=== PATIENT | female | born 1995 | race Caucasian/White ===

== ENCOUNTER 2019-02-13 09:51 | Emergency (ER) | payer BC ==
--- NOTE | 2019-02-13 11:23 | ERPHSYRPT ---
- History of Present Illness Time Seen by Provider: 02/13/19 11:17 Source: patient Exam Limitations: no limitations Patient Subjective Stated Complaint: Had first migraine ever on December 12, 2018 and has now had a total of 6. Went to md and was prescribed Imitrex tablets and isn't getting much relief, her left side of her neck is now swollen, "feels likd a sac of fluid or something and is sore to touch", can not move her neck from side to side, began going to a chiropractor for low back pain in November and her neck is popped weekly by the chiropractor Triage Nursing Assessment: Pt walked into the ER with a stable gait, A&O x3, PERRL, no difficulties with strength, vitals wnl, unable to feel the swelling in the neck that is stated by the patient, pulses normal, rates pain in neck as a 4/10, had migraine last night and today her right eye feels strained and blurry Physician History: Ms narvaez is 23 years old female Had first migraine ever on December 12, 2018 and has now had a total of 6. Went to md and was prescribed Imitrex tablets and isn' t getting much relief, her left side of her neck is now swollen, "feels likd a sac of fluid or something and is sore to touch", can not move her neck from side to side, began going to a chiropractor for low back pain in November and her neck is popped weekly by the chiropractor Timing/Duration: week(s) Quality: aching Head Pain Location: frontal, temporal Severity of Pain-Max: moderate Severity of Pain-Current: moderate Recent Head Trauma: no recent headache/trauma Modifying Factors: Improves With: medication Associated Symptoms: sensitive to light, visual disturbance Previous symptoms: no prior history Allergies/Adverse Reactions: No Known Drug Allergies Allergy (Verified 02/13/19 10:46) Home Medications: Escitalopram Oxalate 10 mg PO DAILY 02/13/19 [History] SUMAtriptan succinate [Imitrex 50 mg] 50 mg PO UD PRN 02/13/19 [History] - Review of Systems Constitutional: No Fever, No Chills Eyes: No Symptoms Ears, Nose, & Throat: No Symptoms Respiratory: No Cough, No Dyspnea Cardiac: No Chest Pain, No Edema, No Syncope Abdominal/Gastrointestinal: No Abdominal Pain, No Nausea, No Vomiting, No Diarrhea Genitourinary Symptoms: No Dysuria Musculoskeletal: No Back Pain, No Neck Pain Skin: No Rash Neurological: Headache, No Dizziness, No Focal Weakness, No Sensory Changes Psychological: No Symptoms Endocrine: No Symptoms All Other Systems: Reviewed and Negative - Past Medical History Pertinent Past Medical History: No Neurological History: Migraines Endocrine Medical History: Hypothyroidism - Past Surgical History Past Surgical History: No - Social History Smoking Status: Former smoker Exposure to second hand smoke: No Drug Use: none Patient Lives Alone: No (son) - Female History Hx Last Menstrual Period: 01/30/2019 Hx Now: No (IUD) - Nursing Vital Signs Nursing Vital Signs: Initial Vital Signs Temperature 98.5 F 02/13/19 10:30 Pulse Rate 76 02/13/19 10:30 Blood Pressure 132/74 02/13/19 10:30 O2 Sat by Pulse Oximetry 95 02/13/19 10:30 Pain Scale Pain Intensity 4 - Physical Exam General Appearance: no apparent distress Eye Exam: PERRL/EOMI Ears, Nose, Throat Exam: normal ENT inspection, moist mucous membranes Neck Exam: normal inspection, supple, full range of motion, No meningismus Respiratory Exam: normal breath sounds, lungs clear Cardiovascular Exam: regular rate/rhythm, normal heart sounds Gastrointestinal/Abdominal Exam: soft, No tenderness, No distention Back Exam: normal inspection, normal range of motion Mental Status Exam: alert, 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 Those labs reviewed. TSH 10.74. Patient is taking 25 mcg of synthroid. will adjust dose to 50 mcg . we will also add inderal 30 mg at HS for her headache relief. Blood Culture(s) Obtained: No Antibiotics given: No Counseled pt/family regarding: diagnosis, need for follow-up - Departure Departure Disposition: Home Clinical Impression: Tension headache Hypothyroidism Qualifiers: Hypothyroidism type: acquired Qualified Code(s): E03.9 - Hypothyroidism, unspecified Migraine Qualifiers: Migraine type: unspecified Intractability: not intractable Condition: Stable Critical Care Time: No Referrals: MAC ARMSTRONG P[facility]HANGER AND PAINTER [Primary Care Provider] - Instructions: Hypothyroidism (Underactive Thyroid), Hypothyroidism ( Underactive Thyroid) (DC), Tension Headache (DC), Migraine Headache (DC) Additional Instructions: Discharge/Care Plan YUNIOR FLORES was seen on 02/13/19 in the Emergency Room. The patient was counseled regarding Diagnosis,Lab results, Imaging studies, need for follow up and when to return to the Emergency Room. Prescriptions given: Discharge Note I have spoken with the patient and/or caregivers. I have explained the patient' s condition, diagnosis and treatment plan based on the information available to me at this time. I have answered the patient's and/or caregiver's questions and addressed any concerns. The patient and/or caregivers have as good understanding of the patient's diagnosis, condition and treatment plan as can be expected at this point. The vital signs have been stable. The patient's condition is stable and appropriate for discharge from the emergency department. The patient will pursue further outpatient evaluation with the primary care physician or other designated or consulting physician as outlined in the discharge instructions. The patient and/or caregivers are agreeable to this plan of care and follow-up instructions have been explained in detail. The patient and/or caregivers have received these instruction. The patient/and or caregivers are aware that any significant change in condition or worsening of symptoms should prompt an immediate return to this or the closest emergency department or call 911. Prescriptions: Propranolol HCl [Inderal LA] 60 mg PO QHS #30 cap.sa.24h Levothyroxine Sodium 50 Mcg [Synthroid 50 Mcg] 50 mcg PO DAILY #30 tablet
[2019-02-13 11:29] VITALS: BP 116/91; PULSE 79; O2SAT 98
== END 2019-02-13 11:31 | disposition home or self-care (01) ==
LOC: ED 09:51
DX: G44.209 Tension-type headache, unspecified, not intractable (principal); E03.9 Hypothyroidism, unspecified; G43.909 Migraine, unspecified, not intractable, without status migrainosus
CPT/HCPCS: 99283

== ENCOUNTER 2019-07-15 19:31 | Emergency (ER) | payer BC ==
[2019-07-15] MEDS ORDERED: Reglan 10 MG/2 ML IV ONE (19:59)
[2019-07-15] MEDS ORDERED: SUBLIMAZE 100 MCG/2 ML IV ONE (19:59)
[2019-07-15] MEDS ORDERED: Sodium Chloride 0.9% 1000 ML 1,000 ML IV STA (19:59)
--- NOTE | 2019-07-15 20:13 | ERPHSYRPT ---
- History of Present Illness Time Seen by Provider: 07/15/19 20:11 Source: patient Exam Limitations: no limitations Patient Subjective Stated Complaint: patient presented to ER with migraines has already been to [facility] today and they gave her medicine through iv but it did not work and shes still feeling terrible . states she can feel heart beat in her temples Triage Nursing Assessment: pt alert and orietnedx3, able to ambulate by self, gait is steady, pupils perrla2, handgrips wequal bilateral, pulses equal bialteral radius, lung soudns clear, skin warm dry and itnact. Physician History: patient presented to ER with migraines has already been to [facility] today and they gave her medicine through iv but it did not work and shes still feeling terrible . states she can feel heart beat in her temples Timing/Duration: yesterday Quality: aching, throbbing Head Pain Location: frontal, temporal Severity of Pain-Max: severe Severity of Pain-Current: severe Recent Head Trauma: no recent headache/trauma Modifying Factors: Improves With: exposure to light Associated Symptoms: facial pain, sensitive to light, stiff neck Previous symptoms: same symptoms as today Allergies/Adverse Reactions: No Known Drug Allergies Allergy (Verified 02/13/19 10:46) Home Medications: Escitalopram Oxalate 10 mg PO DAILY 02/13/19 [History] SUMAtriptan succinate [Imitrex 50 mg] 50 mg PO UD PRN 02/13/19 [History] Hx Tetanus, Diphtheria Vaccination/Date Given: Yes Hx Influenza Vaccination/Date Given: No Hx Pneumococcal Vaccination/Date Given: Yes Immunizations Up to Date: Yes - Review of Systems Constitutional: No Fever, No Chills Eyes: No Symptoms Ears, Nose, & Throat: No Symptoms Respiratory: No Cough, No Dyspnea Cardiac: No Chest Pain, No Edema, No Syncope Abdominal/Gastrointestinal: No Abdominal Pain, No Nausea, No Vomiting, No Diarrhea Genitourinary Symptoms: No Dysuria Musculoskeletal: No Back Pain, No Neck Pain Skin: No Rash Neurological: Headache, No Dizziness, No Focal Weakness, No Sensory Changes Psychological: No Symptoms Endocrine: No Symptoms All Other Systems: Reviewed and Negative - Past Medical History Pertinent Past Medical History: Yes Neurological History: Migraines Endocrine Medical History: Hypothyroidism - Past Surgical History Past Surgical History: Yes - Social History Smoking Status: Former smoker Exposure to second hand smoke: No Drug Use: none Patient Lives Alone: No (son) - Female History Hx Now: No (IUD) - Nursing Vital Signs Nursing Vital Signs: Initial Vital Signs Temperature 98.7 F 07/15/19 19:32 Pulse Rate 64 07/15/19 19:32 Respiratory Rate 18 07/15/19 19:32 Blood Pressure 124/88 07/15/19 19:32 O2 Sat by Pulse Oximetry 98 07/15/19 19:32 Pain Scale Pain Intensity 4 - Physical Exam General Appearance: no apparent distress Eye Exam: PERRL/EOMI Ears, Nose, Throat Exam: normal ENT inspection, moist mucous membranes Neck Exam: normal inspection, supple, full range of motion, No meningismus Respiratory Exam: normal breath sounds, lungs clear Cardiovascular Exam: regular rate/rhythm, normal heart sounds Gastrointestinal/Abdominal Exam: soft, No tenderness, No distention Back Exam: normal inspection, normal range of motion Mental 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, 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, 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: normal speech, PERRL, No facial droop Coordination/Gait Exam: normal cerebellar function Motor/Sensory Exam: no motor deficit, no sensory deficit Skin Exam: normal color, warm, dry, No rash SpO2: 98 - Course Nursing assessment & vital signs reviewed: Yes Ordered Tests: Active Orders 24 hr Category Date Time Status CERVICAL SPINE WO CONTRAST [CT] Stat Exams 07/15/19 22:08 Taken HEAD WITHOUT CONTRAST [CT] Stat Exams 07/15/19 19:59 Taken BMP Stat Lab 07/15/19 21:10 Completed CBC W DIFF Stat Lab 07/15/19 21:10 Completed Erythrocyte Sedimentation Rate Stat Lab 07/15/19 21:10 Completed Medication Summary Discontinued Medications Generic Name Dose Route Start Last Admin Trade Name Iona PRN Reason Stop Dose Admin Fentanyl Citrate 50 mcg 07/15/19 19:59 07/15/19 21:13 Sublimaze 100 Mcg/2 Ml IV 07/15/19 20:00 50 mcg STAT ONE Administration Fentanyl Citrate Confirm 07/15/19 20:27 Sublimaze 100 Mcg/2 Ml Administered 07/15/19 20:28 Dose 100 mcg .ROUTE .STK-MED ONE Sodium Chloride 1,000 mls @ 999 mls/hr 07/15/19 19:59 07/15/19 21:12 Sodium Chloride 0.9% 1000 Ml IV 07/15/19 20:59 999 mls/hr .Q1H1M STA Administration Sodium Chloride Confirm 07/15/19 20:27 Sodium Chloride 0.9% 1000 Ml Administered 07/15/19 20:28 Dose 1,000 mls @ ud .ROUTE .STK-MED ONE Ketorolac Tromethamine 30 mg 07/15/19 21:53 07/15/19 22:28 Toradol 30 Mg Injection IV 07/15/19 21:54 30 mg STAT ONE Administration Ketorolac Tromethamine Confirm 07/15/19 21:58 Toradol 30 Mg Injection Administered 07/15/19 21:59 Dose 30 mg .ROUTE .STK-MED ONE Metoclopramide HCl 10 mg 07/15/19 19:59 07/15/19 21:12 Reglan 10 Mg/2 Ml IV 07/15/19 20:00 10 mg STAT ONE Administration Metoclopramide HCl Confirm 07/15/19 20:27 Reglan 10 Mg/2 Ml Administered 07/15/19 20:28 Dose 10 mg .ROUTE .STK-MED ONE Lab/Rad Data: Laboratory Result Diagrams 07/15/19 21:10 07/15/19 21:10 Laboratory Results 07/15/19 07/15/19 Range/Units 21:10 21:10 WBC 13.1 H (4.0-10.5) K/mm3 RBC 4.44 (4.1-5.4) M/mm3 Hgb 13.6 (12.0-16.0) gm/dl Hct 40.6 (35-47) % MCV 91.4 (78-100) fl MCH 30.6 (26-32) pg MCHC 33.5 (32-36) g/dl RDW 13.4 (11.5-14.0) % Plt Count 225 (150-450) K/mm3 MPV 10.3 H (6-9.5) fl Gran % 76.6 H (36.0-66.0) % Eos # (Auto) 0.03 (0-0.5) Absolute Lymphs (auto) 2.34 (1.0-4.6) Absolute Monos (auto) 0.67 (0.0-1.3) Lymphocytes % 17.9 L (24.0-44.0) % Monocytes % 5.1 (0.0-12.0) % Eosinophils % 0.2 (0.00-5.0) % Basophils % 0.2 (0.0-0.4) % Absolute Granulocytes 10.00 H (1.4-6.9) Basophils # 0.02 (0-0.4) ESR 20 (0-20) mm/hr Sodium 141 (137-145) mmol/L Potassium 4.2 (3.5-5.1) mmol/L Chloride 107 (98-107) mmol/L Carbon Dioxide 23 (22-30) mmol/L Anion Gap 15.0 (5-15) MEQ/L BUN 12 (7-17) mg/dL Creatinine 0.52 (0.52-1.04) mg/dL Estimated GFR > 60.0 ML/MIN Glucose 91 (74-106) mg/dL Calcium 9.6 (8.4-10.2) mg/dL - Progress Progress: improved Air Movement: good Counseled pt/family regarding: lab results, diagnosis, need for follow-up, rad results - Departure Departure Disposition: Home Clinical Impression: Migraine headache with aura Qualifiers: Status migrainosus presence: without status migrainosus Intractability: intractable Qualified Code(s): G43.119 - Migraine with aura, intractable, without status migrainosus Condition: Stable Critical Care Time: No Referrals: MAC ARMSTRONG NP [Primary Care Provider] - Instructions: Migraine Headache (DC) Additional Instructions: HEADACHE 1. After discharge from the emergency department, you should rest at home in a cool, dark, quiet place for 12-24 hours. 2. If any of the following signs or symptoms are noticed, you should be re- evaluated right away: A. Visual changes B. Stiff Neck C. Change in quality or location of pain D. Fever E. Recurrent vomiting 3. If pain medications were prescribed or given, they may cause drowsiness. Discharge/Care Plan YUNIOR FLORES was seen on 07/15/19 in the Emergency Room. The patient was counseled regarding Diagnosis,Lab results, Imaging studies, need for follow up and when to return to the Emergency Room. Prescriptions given: Discharge Note I have spoken with the patient and/or caregivers. I have explained the patient' s condition, diagnosis and treatment plan based on the information available to me at this time. I have answered the patient's and/or caregiver's questions and addressed any concerns. The patient and/or caregivers have as good understanding of the patient's diagnosis, condition and treatment plan as can be expected at this point. The vital signs have been stable. The patient's condition is stable and appropriate for discharge from the emergency department. The patient will pursue further outpatient evaluation with the primary care physician or other designated or consulting physician as outlined in the discharge instructions. The patient and/or caregivers are agreeable to this plan of care and follow-up instructions have been explained in detail. The patient and/or caregivers have received these instruction. The patient/and or caregivers are aware that any significant change in condition or worsening of symptoms should prompt an immediate return to this or the closest emergency department or call 911. YUNIOR FLORES was seen on 07/15/19 n the Emergency Room. At that time you were treated for an emergent condition, during your visit Laboratory, Radiology and/or other procedures may have been ordered. It is very important that you follow-up with your Primary Care Physician MAC ARMSTRONG within the next 24- 48 hours to review your Emergency Room visit and the final results of testing that was ordered. Some test results such as Urine Cultures, Blood Cultures, and other cultures if ordered will not be finalized for 24-48 hours. If you do not have a Primary Care Provider please call the medical records department at [phone] ext [phone] to obtain a copy of your results or you may sign into our patient portal to obtain these results by visiting us @ [email or web address] and completing the following steps: 1. Click on the Patient Portal link 2. Click the Patient Self Enrollment Link to complete the enrollment form and entering your 3. Once the enrollment form is completed you will receive an email with a temporary ID and password at the email address you provided. 4. Next choose a user name and password. Your user name must be at least 4 characters long and your password must be at least 4 characters long. 5. Choose a security question from the list and provide your answer to the question. If you already have signed into the Health Portal you may access your Health Care Information 13/04 by the following steps: 1. Login to our website @ [email or web address] 2. Enter your original user name and password. FAQS The [facility] Health Portal is an online tool that contains your Lab Results, Radiology Reports, Visit History, Discharge Instructions and Health Summary Lab and Radiology Results will not be available for 72 hours on the portal. The Portal is a secure site, passwords are encryted and URLs are re-written so they cannot be copied and pasted. You and authorized family members are the only ones who can access your Portal. Also there is a timeout feature that protects your information if you leave the Portal page open. If you have technical difficulty please use the Contact Us link on the page this will allow you to submit any questions you have regarding the Portal or you may contact the Medical Record Department at [phone]. Prescriptions: Topiramate 50 mg PO BID 1 Days #60 tablet
[2019-07-15] MEDS ORDERED: Reglan 10 MG/2 ML ONE (20:27)
[2019-07-15] MEDS ORDERED: SUBLIMAZE 100 MCG/2 ML ONE (20:27)
[2019-07-15] MEDS ORDERED: Sodium Chloride 0.9% 1000 ML 1,000 ML ONE (20:27)
[2019-07-15 21:16] LABS: BASOPHIL % 0.2 % (0.0-0.4); Basophil (Absolute #) 0.02 (0-0.4); Eosinophil % 0.2 % (0.00-5.0); Eosinophil (Absolute #) 0.03 (0-0.5); Hematocrit 40.6 % (35-47); Hemoglobin 13.6 gm/dl (12.0-16.0); Lymphocyte (Absolute #) 2.34 (1.0-4.6); Lymphocytes % 17.9 % (24.0-44.0); Mean Cell Volume 91.4 fl (78-100); Mean Corpuscular Hemoglobin 30.6 pg (26-32); Mean Corpuscular Hgb Concent. 33.5 g/dl (32-36); Mean Platelet Volume 10.3 fl (6-9.5); Monocyte (Absolute #) 0.67 (0.0-1.3); Monocytes % 5.1 % (0.0-12.0); Neutrophil % 76.6 % (36.0-66.0); Platelet Count 225 K/mm3 (150-450); Red Blood Count 4.44 M/mm3 (4.1-5.4); Red Cell Distribution Width 13.4 % (11.5-14.0); White Blood Count 13.1 K/mm3 (4.0-10.5)
[2019-07-15 21:31] LABS: BLOOD UREA NITROGEN 12 mg/dL (7-17); CHLORIDE 107 mmol/L (98-107); Calcium 9.6 mg/dL (8.4-10.2); Carbon Dioxide 23 mmol/L (22-30); Creatinine 1 0.52 mg/dL (0.52-1.04); Glucose 91 mg/dL (74-106); Potassium 4.2 mmol/L (3.5-5.1); SODIUM 141 mmol/L (137-145)
[2019-07-15 21:36] LABS: Erythrocyte Sedimentation Rate 20 mm/hr (0-20)
[2019-07-15] MEDS ORDERED: TORAdol 30 mg Injection IV ONE (21:53)
[2019-07-15] MEDS ORDERED: TORAdol 30 mg Injection ONE (21:58)
[2019-07-15 22:59] VITALS: BP 113/58; PULSE 68
[2019-07-15 23:54] VITALS: O2SAT 98
--- NOTE | 2019-07-16 08:00 | XRAY ---
Indication: Severe head and neck pain. Multiple contiguous axial images obtained through the head without contrast. Comparison: None Normal appearing brain parenchyma, ventricles, and bony calvarium. Minimal mucosal thickening of right sphenoid, right ethmoid, and right maxillary sinuses without fluid leveling. Mastoid air cells are clear. Impression: 1. Minimal paranasal sinus disease. 2. Remaining CT head without contrast exam is negative. Comment: Preliminary interpretation was made by [facility]. No critical discrepancy. CTDI 67.80
--- NOTE | 2019-07-16 08:02 | XRAY ---
Indication: Severe head and neck pain. Multiple contiguous axial images obtained through the cervical spine. Sagittal and coronal reformatted images obtained. Comparison: None Axial images negative for acute fracture, suspicious bony lesions, or spinal canal stenosis. Facets are symmetric. Sagittal and coronal reformatted images demonstrates normal alignment with vertebral body heights/disc spaces preserved. No acute compression fracture, subluxation, or jumped facet. Normal appearing craniocervical junction. Visualized noncontrasted soft tissues including lung apices unremarkable. Impression: Negative CT cervical spine. Comment: Preliminary interpretation was made by [facility]. No critical discrepancy. CTDI 61.90
== END 2019-07-16 00:06 | disposition home or self-care (01) ==
LOC: ED 19:31
DX: G43.119 Migraine with aura, intractable, without status migrainosus (principal)
CPT/HCPCS: 36000; 36415; 70450; 72125; 80048; 85025; 85652; 96374; 96375; 99284; J1885; J3010